=== PATIENT | male | born 1990 ===

== ENCOUNTER 2016-10-25 20:25 | Emergency (ER) | payer MEDICAID ==
[2016-10-25 20:56] VITALS: BP 152/87; PULSE 95; RESP 16; TEMP 98.7; O2SAT 98
[2016-10-25] MEDS ORDERED: TDAP Vaccine 0.5 mL Syr IM ONE (21:35)
--- NOTE | 2016-10-25 21:37 | ED PDOC ---
HPI: General Adult Time Seen by Provider: 10/25/16 20:57 Chief Complaint (Nursing): Abnormal Skin Integrity Chief Complaint (Provider): Laceration of Left Side of Face History Per: Patient, Family History/Exam Limitations: language barrier Onset/Duration Of Symptoms: Hrs (x6) Current Symptoms Are (Timing): Still Present Additional Complaint(s): Junior Murphy is a 26 year old male that presents to the ED with laceration on the left side of his face he obtained earlier today. Patient reports that he was holding a glass plate but accidentally dropped it, and a piece of glass from the shattered plate flew into the left side of his face. Patient does not remember when his last tetanus vaccination was. Past Medical History Reviewed: Historical Data, Nursing Documentation, Vital Signs Vital Signs: Last Vital Signs Temp 98.7 F 10/25/16 20:54 Pulse 95 H 10/25/16 20:54 Resp 16 10/25/16 20:54 BP 152/87 H 10/25/16 20:54 Pulse Ox 98 10/25/16 21:45 - Family History Family History: States: Unknown Family Hx - Social History Current smoker - smoking cessation education provided: Yes - Immunization History Hx Tetanus Toxoid Vaccination: No - Home Medications Home Medications: Ambulatory Orders Medication Instructions Recorded No Known Home Med 10/25/16 - Allergies Allergies/Adverse Reactions: Allergies Allergy/AdvReac Type Severity Reaction Status Date / Time No Known Allergies Allergy Verified 10/25/16 20:54 Review of Systems Constitutional: Positive for: Other (laceration to left side of face) Physical Exam - Reviewed Nursing Documentation Reviewed: Yes Vital Signs Reviewed: Yes - Physical Exam Appears: Positive for: Non-toxic, No Acute Distress Head Exam: Positive for: NORMOCEPHALIC. Negative for: ATRAUMATIC (1 cm superficial laceration to left maxillary region. No active bleeding, no foreign body.) Skin: Positive for: Normal Color, Warm Eye Exam: Positive for: Normal appearance, EOMI, PERRL Neurologic/Psych: Positive for: Alert, Oriented - ECG O2 Sat by Pulse Oximetry: 98 Pulse Ox Interpretation: Normal Medical Decision Making Medical Decision Making: Impression: Superficial facial laceration Plan: * Tetanus Booster * Laceration Repair Tetanus was ordered but patient refused. See procedure note. Wound care instructions provided. Scribe Attestation: Documented by Margarita Dewitt, acting as a scribe for May Hatfield PA-C. Provider Scribe Attestation: All medical record entries made by the Scribe were at my direction and personally dictated by me. I have reviewed the chart and agree that the record accurately reflects my personal performance of the history, physical exam, medical decision making, and the department course for this patient. I have also personally directed, reviewed, and agree with the discharge instructions and disposition. Procedures - Laceration/Wound Repair Left Upper Face Wound Length (cm): 1 (no active bleeding. ) Wound's Depth, Shape: superficial Wound Explored: no foreign body removed Irrigated w/ Saline (ccs): 10 Betadine Prep?: Yes Wound Repaired With: Skin adhesive (dermabond applied, the closure reinforced with steri-strips) Layer Closure?: No Wound Complexity: Simple Sterile Dressing Applied?: Yes Disposition - Clinical Impression Clinical Impression: Facial laceration - Patient ED Disposition Is Patient to be Admitted: No Counseled Patient/Family Regarding: Diagnosis, Need For Followup - Disposition Referrals: [facility] [Outside] Disposition: Routine/Home Disposition Time: 22:16 Condition: STABLE Additional Instructions: Keep area clean and dry. Allow steri-strips and excess glue to flake off on its own. Follow up in 2-3 days with clinic. Instructions: Skin Adhesive Care (ED), Steristrips (ED), Facial Laceration (ED)
== END 2016-10-25 22:30 | disposition home or self-care (01) ==
LOC: H.ER 20:25
DX: S01.81XA Laceration without foreign body of other part of head, initial encounter (principal); W25.XXXA Contact with sharp glass, initial encounter; Y92.000 Kitchen of unspecified non-institutional (private) residence as the place of occurrence of the external cause

== ENCOUNTER 2018-09-17 10:30 | Emergency (ER) | payer MEDICAID, OTHER ==
[2018-09-17 11:02] VITALS: RESP 20; O2SAT 98
[2018-09-17 13:29] LABS: ALB/GLOB RATIO 1.2 (1.0-2.1); ALBUMIN 4.6 g/dL (3.5-5.0); ALT/SGPT 39 U/L (21-72); AST/SGOT 24 U/L (17-59); BLOOD UREA NITROGEN 10 mg/dl (9-20); CALCIUM 9.6 mg/dL (8.4-10.2); GFR NON-AFRICAN AMERICAN > 60
--- NOTE | 2018-09-17 13:39 | ED PDOC ---
Lower Extremity Pain/Injury Time Seen by Provider: 09/17/18 10:54 Chief Complaint (Nursing): Lower Extremity Problem/Injury Chief Complaint (Provider): Left ankle pain History Per: Patient History/Exam Limitations: no limitations Additional Complaint(s): 28 y/o M with no significant PMH who presents with Left ankle pain. Pt states that he began having pain in his left ankle for the past 4 days that began suddenly and has gradually worsened over the past couple of days. He is able to bear weight and denies trauma or fall. Further denies fever, chills, night sweats or hx of gout. No change in diet recently. Past Medical History Reviewed: Historical Data, Nursing Documentation, Vital Signs Vital Signs: Last Vital Signs Temp 99 F 09/17/18 10:58 Pulse 105 H 09/17/18 10:58 Resp 20 09/17/18 10:58 BP 143/88 09/17/18 10:58 Pulse Ox 98 09/17/18 10:58 - Medical History PMH: No Chronic Diseases Denies: Atrial Fibrillation, Chronic Kidney Disease - Surgical History Surgical History: No Surg Hx - Family History Family History: States: Unknown Family Hx - Immunization History Hx Tetanus Toxoid Vaccination: No - Home Medications Home Medications: Ambulatory Orders Medication Instructions Recorded Indomethacin [Indocin] 50 mg PO TID PRN 7 Days cap 09/17/18 traMADol [Ultram] 50 mg PO Q8 PRN 2 Days tab 09/17/18 - Allergies Allergies/Adverse Reactions: Allergies Allergy/AdvReac Type Severity Reaction Status Date / Time No Known Allergies Allergy Verified 09/17/18 10:57 Review of Systems Constitutional: Negative for: Fever, Chills Musculoskeletal: Positive for: Foot Pain (ankle pain) Physical Exam - Reviewed Nursing Documentation Reviewed: Yes Vital Signs Reviewed: Yes - Physical Exam Appears: Positive for: Uncomfortable Extremity: Positive for: Normal ROM (with flexion and extension of left ankle and toes with pain with flexion of ankle.), Capillary Refill (< 2 sec), Swelling (mild erythema of Left ankle at lateral malleolus. + swelling and tenderness on palpation of left lateral malleolus, no pain on palpation of dorsum of foot. No ecchymosis). Negative for: Deformity Neurological/Psych: Positive for: Awake, Alert, Oriented - Laboratory Results Result Diagrams: 09/17/18 12:48 Lab Results: Total Bilirubin 0.5 mg/dl (0.2-1.3) 09/17/18 12:48 AST 24 U/L (17-59) 09/17/18 12:48 ALT 39 U/L (21-72) 09/17/18 12:48 Alkaline Phosphatase 81 U/L (38-126) 09/17/18 12:48 Total Protein 8.5 G/DL (6.3-8.2) H 09/17/18 12:48 Albumin 4.6 g/dL (3.5-5.0) 09/17/18 12:48 Globulin 3.9 gm/dL (2.2-3.9) 09/17/18 12:48 Albumin/Globulin Ratio 1.2 (1.0-2.1) 09/17/18 12:48 - ECG O2 Sat by Pulse Oximetry: 98 Medical Decision Making Medical Decision Making: Left ankle x-ray CBC, CMP Left ankle x-ray read by me: no acute fracture or abnormality. Indomethacin 50mg PO x 1 ordered. Re-assessed: No improvement in pain after Indomethacin. Tramadol 50mg PO x 1 ordered. Pt refused repeat CBC stating that he wanted to leave. Pain remains unchanged. Tramadol 50mg PO x 1 given. Advised to return to ED if develop fever, chills, night sweats or worsening symptoms. Pt admitted that he had a similar episode of left ankle pain last year but it only lasted a couple of days. Further advised to follow up with primary care doctor for further evaluation of possible diabetes and general care. Disposition - Clinical Impression Clinical Impression: Gout - Patient ED Disposition Is Patient to be Admitted: No - Disposition Referrals: [facility] [Outside] Disposition: Routine/Home Disposition Time: 14:16 Condition: STABLE Additional Instructions: Follow up with primary care doctor for further evaluation of elevated blood sugar. Take Indomethacin as needed for pain. Return to ER if pain continues to worsen despite taking medications or you are unable to bear weight. Take Tramadol only for severe pain as it can be addictive. Prescriptions: Indomethacin [Indocin] 50 mg PO TID PRN 7 Days cap PRN Reason: Pain, Moderate (4-7) traMADol [Ultram] 50 mg PO Q8 PRN 2 Days tab PRN Reason: Pain, Severe (8-10) Instructions: Gout (DC) Forms: [facility] (Malaysian) Print Language: SAMOAN
--- NOTE | 2018-09-17 14:09 | RAD ---
Date of service: 09/17/2018 PROCEDURE: Left Ankle Radiographs. HISTORY: left lateral malleolus pain x 4 days COMPARISON: None available. TECHNIQUE: 3 views obtained. FINDINGS: BONES: Bone alignment and mineralization are normal. There is no acute displaced fracture or bone destruction. JOINTS: Normal. Ankle mortise maintained. Talar dome intact SOFT TISSUES: Normal. OTHER FINDINGS: None. IMPRESSION: No acute displaced fracture or dislocation.
[2018-09-17 14:17] VITALS: BP 112/76; PULSE 70; TEMP 98.6
== END 2018-09-17 14:17 | disposition home or self-care (01) ==
LOC: H.ER 10:30
DX: M10.9 Gout, unspecified (principal)